=== PATIENT | female | born 1960 | race Caucasian/White ===

== ENCOUNTER 2016-06-16 18:53 | Emergency (ER) | payer OTHER ==
[~2016-06-16] VITALS: Ht 152.4 cm; Wt 99.5 kg
[~2016-06-16 18:53] MED LIST: CIPR500T4 PO; IBUP-1542 PO
[2016-06-16 19:04] VITALS: Ht 152.4 cm; Wt 99.5 kg
[2016-06-16] MEDS ORDERED: SOD CHLORIDE 0.9% 1,000 ML IV STA (20:20)
[2016-06-16] MEDS ORDERED: ONDANSETRON 4 MG INJ IV STA (20:20)
[2016-06-16] MEDS ORDERED: morphine 4 MG/ML VIAL IV STA ×2 (20:20→22:49)
[2016-06-16] MEDS ORDERED: FAMOTIDINE 20 MG INJ IV STA (20:20)
[2016-06-16] MEDS ORDERED: LEVO200T45 PO (20:27)
[2016-06-16] MEDS ORDERED: PANT40TA3 PO (20:28)
[2016-06-16 20:39] LABS: URINE BLOOD (Dip) POC Negative (NEGATIVE)
[2016-06-16 20:44] LABS: ADD SCAN DIFF NO
[2016-06-16 20:47] LABS: BASOPHILS % 0.4 % (0.0-2.0); EOSINOPHILS # 0.1 10^3/ul (0.0-0.5); EOSINOPHILS % 1.1 % (0.0-7.0); HEMATOCRIT 39.3 % (37.0-47.0); LYMPHOCYTES # 2.9 10^3/ul (0.8-2.9); LYMPHOCYTES % 32.3 % (15.0-51.0); MEAN CORPUSCULAR HEMOGLOBIN 32.3 pg (29.0-33.0); MEAN CORPUSCULAR HGB CONC 33.1 g/dl (32.0-37.0); MEAN CORPUSCULAR VOLUME 97.8 fl (82.0-101.0); MEAN PLATELET VOLUME 9.9 fl (7.4-10.4); MONOCYTES % 10.8 % (0.0-11.0); NEUTROPHIL # 4.9 10^3/ul (1.6-7.5); NEUTROPHILS % 55.1 % (39.0-77.0); PLATELET COUNT 233 10^3/UL (140-415); RED BLOOD COUNT 4.02 10^6/ul (4.20-5.40); RED CELL DISTRIBUTION WIDTH 12.3 % (11.5-14.5)
[2016-06-16 20:49] LABS: ADD UMIC YES; URINE BILIRUBIN (Dip) NEGATIVE (NEGATIVE); URINE BLOOD (Dip) TRACE (NEGATIVE); URINE COLOR LT. YELLOW (YELLOW); URINE GLUCOSE (Dip) NEGATIVE (NEGATIVE); URINE KETONES (Dip) NEGATIVE (NEGATIVE); URINE LEUKOCYTE ESTERASE (Dip) TRACE (NEGATIVE); URINE NITRITE (Dip) NEGATIVE (NEGATIVE); URINE TOTAL PROTEIN (Dip) NEGATIVE (NEGATIVE); URINE UROBILINOGEN (Dip) 0.2 E.U./dL (0.1-1.0)
[2016-06-16 20:56] LABS: BACTERIA,URINE FEW; URINE RBCS 0-2 /HPF (0)
[2016-06-16 21:16] LABS: ALBUMIN 4.5 g/dl (3.3-4.9)
[2016-06-16 21:19] LABS: ALBUMIN/GLOBULIN RATIO 1.09; BILIRUBIN,INDIRECT 0.3 mg/dl (0-1.1); BILIRUBIN,TOTAL 0.3 mg/dl (0.2-1.3); CREATININE 0.61 mg/dl (0.44-1.00); TOTAL PROTEIN 8.6 g/dl (6.1-8.1)
[2016-06-16 21:20] LABS: CALCIUM 9.3 mg/dl (8.4-10.2)
--- NOTE | 2016-06-16 22:04 | RADRPT ---
PROCEDURE: CT Abdomen and Pelvis without contrast. CLINICAL INDICATION: Abdominal and pelvic pain. TECHNIQUE: CT scan of the abdomen and pelvis without contrast was performed. Coronal and sagittal reformatted images were obtained from the axial source images. Images were reviewed on a high-resolu [employer] PACS workstation. Total exam DLP is 1239.46 mGy-cm. CTDIvol is 23.14 mGy. One or more of the following dose reduction techniques were used: Automated exposure control, adjustment of the mA and/ or kV according to patient size, use of iterative reconstruction technique. COMPARISON: CT scan of the abdomen and pelvis dated 01/29/2016. FINDINGS: The lung bases are normal. There is no pleural effusion. The liver is enlarged and diffusely decreased attenuation consistent with fatty metamorphosis. There is no focal hepatic lesion. There is mild focal fatty sparing adjacent to the gallbladder. The gallbladder and bile ducts are normal. The spleen is normal in size. There is no focal splenic lesion. Both adrenals are normal with no enlargement or mass. The pancreas is unremarkable with no mass or evidence of pancreatitis. There is no renal mass or hydronephrosis. There is no renal calculus or ureteral calculus. The abdominal aorta is not dilated. There is no retroperitoneal lymphadenopathy or mass. There is no pelvic lymphadenopathy or mass. The bladder and distal ureters are normal. The appendix is well seen and appears normal. There is diverticulosis of the descending colon and sigmoid colon. There is a small region of thick ening of the wall of the lower descending colon with adjacent mesenteric edema consistent with proba ble diverticulitis. The bowel and mesentery are otherwise normal. There is no evidence of abscess. There is no free fluid or free gas. There are degenerative changes of the spine. There is no fracture or lytic lesion. IMPRESSION: 1. Hepatomegaly. 2. Fatty metamorphosis of the liver. 3. Small region of focal fatty sparing of the liver adjacent to the gallbladder. 4. Normal appendix. 5. Diverticulosis of the descending colon and sigmoid colon. 6. Small region of thickening of the wall of the lower descending colon with adjacent mesenteric ed iban consistent with probable diverticulitis. Follow-up advised. 7. Degenerative changes of the spine. RPTAT: QQ .Phil Slaughter MD, MD Date Time Electronically viewed and signed by .Phil Slaughter MD, on 06/16/2016 22:04 .R/
[2016-06-16] MEDS ORDERED: metroNIDAZOLE 500 MG TAB PO ONE (22:30)
[2016-06-16] MEDS ORDERED: CIPROFLOXACIN 500 MG TAB PO ONE (22:30)
--- NOTE | 2016-06-16 22:52 | ERD ---
ER Documentation Chief Complaint Date/Time DATE: 06/16/16 TIME: 22:49 Chief Complaint Left side AP x2 days. worst today. HPI This is a 55-year-old female presents to the emergency room for evaluation of abdominal pain. The patient states that she has had abdominal pain for 2 days duration and localizes to the left portion of abdomen. She describes as a sharp pain with no radiation. She states that she is mildly nauseous, but has not vomited. She denies any diarrhea associated with this and does state that she is passing gas normally. The patient is denying any chest pain or palpitations or shortness of breath associated with this. She denies any relieving factors for her pain and aggravating factors or palpation of the area. ROS All systems reviewed and are negative except as per history of present illness. Medications Home Meds Reported Medications Pantoprazole* (Protonix*) 40 Mg Tablet.dr, 40 MG PO DAILY, TAB 06/16/16 Levothyroxine Sodium* (Levoxyl*) 200 Mcg Tablet, 200 MCG PO BEFORE BREAKFAST, # 30 TAB 06/16/16 Discontinued Scripts Ibuprofen* (Motrin*) 600 Mg Tab, 600 MG PO Q6, #15 TAB Prov:PÉREZ MCKAY NP 01/29/16 Ciprofloxacin Hcl* (Ciprofloxacin Hcl*) 500 Mg Tablet, 500 MG PO BID for 7 Days , TAB Prov:PÉREZ MCKAY NP 01/29/16 Allergies Allergies: Coded Allergies: No Known Allergy (Unverified , 06/16/16) PMhx/Soc History of Surgery: Yes (CS, ovary surgury not specified) Hx Miscellaneous Medical Probl: Yes (thyroiditis) Hx Alcohol Use: No Hx Substance Use: No Hx Tobacco Use: No (quit 6 wks ago) Smoking Status: Former smoker Physical Exam Vitals Vital Signs Date Time Temp Pulse Resp B/P Pulse Ox O2 Delivery O2 Flow Rate FiO2 06/16/16 20:41 86 17 119/70 96 Room Air 06/16/16 19:04 99.0 96 20 132/73 95 Physical Exam INITIAL VITAL SIGNS: Reviewed by me GENERAL: The patient is well developed and appropriate for usual state of health in no apparent distress HEENT: Pupils equal, round, and reactive to light. EOMI. There is no scleral icterus. NECK: C-spine is soft and supple, there is no meningismus. There is no cervical lymphadenopathy. LUNGS: Clear to auscultation bilaterally. There are no rales, wheezes or rhonchi. HEART: Regular rate and rhythm, no murmurs, clicks, rubs or gallops. ABDOMEN: Left lower quadrant tenderness to palpation, otherwise soft, non-tender , non-distended. There are bowel sounds in all four quadrants. No rebound or guarding. EXTREMITIES: There is no peripheral cyanosis or edema. No focal swelling or erythema. NEUROLOGICAL: The patient moves all four extremities with 5/5 strength. Cranial nerves II - XII are intact. Normal gait. Alert and oriented SKIN: There is no apparent rash or petechiae. HEME/LYMPHATIC: There is no evidence of excessive bruising or lymphedema. PSYCHIATRIC: The patient does not appear anxious or depressed. Result Diagram: 06/16/16202906/16/162029 Results 24 hrs Laboratory Tests Test 06/16/16 20:30 06/16/16 20:39 White Blood Count 9.010^3/ul Red Blood Count 4.0210^6/ul Hemoglobin 13.0g/dl Hematocrit 39.3% Mean Corpuscular Volume 97.8fl Mean Corpuscular Hemoglobin 32.3pg Mean Corpuscular Hemoglobin Concent 33.1g/dl Red Cell Distribution Width 12.3% Platelet Count 96253^3/UL Mean Platelet Volume 9.9fl Neutrophils % 55.1% Lymphocytes % 32.3% Monocytes % 10.8% Eosinophils % 1.1% Basophils % 0.4% Nucleated Red Blood Cells % 0.0/100WBC Neutrophils # 4.910^3/ul Lymphocytes # 2.910^3/ul Monocytes # 1.010^3/ul Eosinophils # 0.110^3/ul Basophils # 0.010^3/ul Nucleated Red Blood Cells # 0.010^3/ul Urine Color LT. YELLOW Urine Clarity CLEAR Urine pH 6.5 Urine Specific [place] 1.010 Urine Ketones NEGATIVE Urine Nitrite NEGATIVE Urine Bilirubin NEGATIVE Urine Urobilinogen 0.2 E.U./dL Urine Leukocyte Esterase TRACE Urine Microscopic RBC 0-2/HPF Urine Microscopic WBC 5-10/HPF Urine Epithelial Cells MODERATE Urine Bacteria FEW Urine Hemoglobin TRACE Urine Glucose NEGATIVE% Urine Total Protein NEGATIVE Sodium Level 141mmol/L Potassium Level 4.0mmol/L Chloride Level 100mmol/L Carbon Dioxide Level 28mmol/L Anion Gap 17 Blood Urea Nitrogen 18mg/dl Creatinine 0.61mg/dl Glucose Level 107mg/dl Calcium Level 9.3mg/dl Total Bilirubin 0.3mg/dl Direct Bilirubin 0.00mg/dl Indirect Bilirubin 0.3mg/dl Aspartate Amino Transf (AST/SGOT) 99IU/L Alanine Aminotransferase (ALT/SGPT) 106IU/L Alkaline Phosphatase 121IU/L Total Protein 8.6g/dl Albumin 4.5g/dl Globulin 4.10g/dl Albumin/Globulin Ratio 1.09 Lipase 62U/L Bedside Urine pH (LAB) 6.5 Bedside Urine Protein (LAB) Negative Bedside Urine Glucose (UA) Negative Bedside Urine Ketones (LAB) Negative Bedside Urine Blood Negative Bedside Urine Nitrite (LAB) Negative Bedside Urine Leukocyte Esterase (L Trace Current Medications Medications (Trade) Dose Ordered Sig/Wallace Route PRN Reason Start Time Stop Time Status Last Admin Dose Admin Sodium Chloride (NS) 1,000 ml @ 1,000 mls/hr Q1H STAT IV 06/16/16 20:20 06/16/16 21:19 DC 06/16/16 20:31 Morphine Sulfate (morphine) 4 mg ONCE STAT IV 06/16/16 20:20 06/16/16 20:21 DC 06/16/16 20:31 Ondansetron HCl (Zofran Inj) 4 mg ONCE STAT IV 06/16/16 20:20 06/16/16 20:21 DC 06/16/16 20:30 Famotidine (Pepcid Iv) 20 mg ONCE STAT IV 06/16/16 20:20 06/16/16 20:21 DC 06/16/16 20:31 Ciprofloxacin (Cipro) 500 mg ONCE ONCE PO 06/16/16 22:30 06/16/16 22:31 DC 06/16/16 22:32 Metronidazole (Flagyl) 500 mg ONCE ONCE PO 06/16/16 22:30 06/16/16 22:31 DC 06/16/16 22:32 Procedures/MDM CT abdomen pelvis without: 1. Hepatomegaly. 2. Fatty metamorphosis of the liver. 3. Small region of focal fatty sparing of the liver adjacent to the gallbladder. 4. Normal appendix. 5. Diverticulosis of the descending colon and sigmoid colon. 6. Small region of thickening of the wall of the lower descending colon with adjacent mesenteric edema consistent with probable diverticulitis. Follow-up advised. 7. Degenerative changes of the spine. This 35-year-old female presents to the emergency room for evaluation of abdominal pain. When I evaluated her this patient did have tenderness to palpation in the left lower quadrant. The patient does not have any history of diverticulosis, and that she appeared to be in mild distress. I did obtain lab work on this patient and did give this patient morphine for pain control. CT of the abdomen and pelvis was obtained which shows probable diverticulitis. Given this patient's clinical findings the patient was treated with oral ciprofloxacin and Flagyl. Her pain is controlled with morphine at this time. She is afebrile, no leukocytosis and will be discharged home with a prescription for ciprofloxacin, Flagyl, [place], and Zofran. Departure Diagnosis: Primary Impression: Acute diverticulitis Additional Impression: Abdominal pain Condition: Stable SIRISHA RIVERO DO Jun 16, 2016 22:51
[2016-06-16] MEDS ORDERED: METR500T14 PO (22:53)
[2016-06-16] MEDS ORDERED: CIPR500T4 PO (22:53)
[2016-06-16] MEDS ORDERED: HYDR-906 PO (22:53)
[2016-06-16] MEDS ORDERED: ONDA4TAB8 PO (22:54)
[2016-06-16] MEDS ORDERED: HYDROCODONE/APAP (5/325) TAB PO ONE (23:00)
[2016-06-16 23:09] VITALS: BP 111/68; PULSE 84; RESP 18
== END 2016-06-16 23:09 | disposition home or self-care (01) ==
LOC: E/R 18:53
DX: K57.92 Diverticulitis of intestine, part unspecified, without perforation or abscess without bleeding (principal); R10.32 Left lower quadrant pain; R11.0 Nausea; Z87.891 Personal history of nicotine dependence
CPT/HCPCS: 36415; 74176; 80053; 81001; 81003; 83690; 85025; 96374; 96375; 96376; J2270; J2405; J7030; Z7502; Z7610

== ENCOUNTER 2016-10-14 15:14 | Emergency (ER) | payer SELFPAY ==
[~2016-10-14] VITALS: Ht 157.5 cm; Wt 96.5 kg
[~2016-10-14 15:14] MED LIST changes: +HYDR-906 PO; -IBUP-1542 PO; +LEVO200T45 PO; +METR500T14 PO; +ONDA4TAB8 PO; +PANT40TA3 PO
[2016-10-14 15:17] VITALS: Ht 157.5 cm; Wt 96.5 kg
== END 2016-10-14 19:30 | disposition left against medical advice (07) ==
LOC: E/R 15:14
DX: Z53.21 Procedure and treatment not carried out due to patient leaving prior to being seen by health care provider (principal)

== ENCOUNTER 2016-11-16 07:52 | Day surgery (SDC) | payer OTHER ==
[~2016-11-16] VITALS: Ht 157.5 cm; Wt 94.8 kg
[2016-11-16 08:53] VITALS: Ht 157.5 cm; Wt 94.8 kg
[2016-11-16 09:23] VITALS: BP 122/63; PULSE 64; RESP 18
[2016-11-16] MEDS ORDERED: FENTAnyl 50 MCG/ML VIAL ONE (09:34)
[2016-11-16] MEDS ORDERED: PROPOFOL 20 ML ONE (09:34)
[2016-11-16] MEDS ORDERED: MIDAZOLAM 1 MG/ML 2 ML INJ ONE (09:34)
--- NOTE | 2016-11-16 09:57 | OPPN ---
Date/Time of Note Date/Time of Note DATE: 11/16/16 TIME: 09:56 Operative Report Preoperative Diagnosis Screening: Colonoscopy Postoperative Diagnosis Same Operation/Procedure Performed 1. Diverticulosis 2. Negative all the way into cecum Provider: RAFAELA PADILLA MD Anesthesia Type: MAC Estimated blood loss: none Transfusion Required: no Specimen: none Grafts/Implants: none Complications: no RAFAELA PADILLA MD Nov 16, 2016 09:57
[2016-11-16 10:21] VITALS: BP 126/74; PULSE 60; RESP 21
--- NOTE | 2016-11-16 12:39 | GILP ---
DATE OF PROCEDURE: 11/16/2016 INDICATIONS FOR PROCEDURE: A 56-year-old female undergoing the procedure for colon cancer screening. The risks of the procedure, related complications, anesthetic risk, alternatives discussed and informed consent was obtained. DESCRIPTION OF PROCEDURE: Patient was brought to the GI lab, sedated by the anesthesiologist. After optimal sedation, the digital examination done which was grossly normal. Scope was passed with much ease into the rectum. Advanced through sigmoid, descending, transverse colon all the way into the cecum. Cecum was filled with stool and there was solid stool at different angulation but grossly it was normal. A few diverticula seen in the left side of the colon. The scope was then gradually withdrawn. Patient tolerated the procedure well. IMPRESSION: 1. Normal digital exam. 2. Normal all the way into the cecum. 3. Prep suboptimal in the cecum and also at different angulation because of solid stool precluding the visibility by 5 percent. 4. Diverticulosis. PLAN: Stay on high-fiber diet. Addendum: We asked for an EGD also but the insurance company declined it. Dictated By: Shar Wallace MD /althea/masoud /Document#: [id number] ; Romeo Dowd MD
== END 2016-11-16 12:44 | disposition home or self-care (01) ==
LOC: GIL 07:52
PROVIDERS: ATTEND Internal Medicine Gastroenterology
DX: Z12.11 Encounter for screening for malignant neoplasm of colon (principal); K57.30 Diverticulosis of large intestine without perforation or abscess without bleeding; Z88.0 Allergy status to penicillin
CPT/HCPCS: 45378; J2250; J3010; Z7610

== ENCOUNTER 2017-03-11 15:35 | Inpatient (IN) | END 2017-03-21 13:39 | disposition home or self-care (01) | DRG 301 ==

== ENCOUNTER 2017-04-04 13:41 | Emergency (ER) | END 2017-04-04 21:44 | disposition home or self-care (01) ==

== ENCOUNTER 2017-05-07 09:27 | Emergency (ER) | END 2017-05-07 11:53 | disposition home or self-care (01) ==

== ENCOUNTER 2017-10-12 19:39 | Emergency (ER) | END 2017-10-12 21:36 | disposition home or self-care (01) ==

== ENCOUNTER 2017-11-12 05:08 | Emergency (ER) | END 2017-11-12 08:20 | disposition home or self-care (01) ==

== ENCOUNTER 2017-12-26 09:28 | Emergency (ER) | END 2017-12-26 14:12 | disposition home or self-care (01) ==

== ENCOUNTER 2018-03-23 12:05 | Emergency (ER) | payer OTHER ==
[~2018-03-23] VITALS: Ht 160 cm; Wt 90.4 kg
[~2018-03-23 12:05] MED LIST changes: +CEPH500C PO; -CIPR500T4 PO; -HYDR-906 PO; +LEVO175T6 PO; -LEVO200T45 PO; -METR500T14 PO; -ONDA4TAB8 PO; -PANT40TA3 PO
[2018-03-23 12:08] VITALS: BP 127/72; PULSE 85; RESP 20; Ht 160 cm; Wt 90.4 kg
[2018-03-23] MEDS ORDERED: PROMETHAZINE/CODEINE 5ML CUP PO ONE (13:00)
[2018-03-23] MEDS ORDERED: KETOROLAC 30 MG INJ IM STA (13:00)
[2018-03-23] MEDS ORDERED: IBUP-1542 PO (13:52)
[2018-03-23] MEDS ORDERED: PROM5SYR2 PO (13:52)
--- NOTE | 2018-03-23 13:54 | ERD ---
ER Documentation Chief Complaint Chief Complaint pt is bib family with c/o sore throat x 3 days and fever HPI 57-year-old female presents with sore throat and fever, cough and body aches for the last 3 days. She has vomiting, chest pain, abdominal pain, urinary complaints. ROS All systems reviewed and are negative except as per history of present illness. Medications Home Meds Active Scripts Promethazine HCl/Codeine (Prometh-Codein 6.25-10 mg/5 ml) 5 Ml Syrup, 5 ML PO BID for 4 Days Prov:GIOVANA RASCON MD 03/23/18 Ibuprofen* (Motrin*) 600 Mg Tab, 600 MG PO Q6, #20 TAB Prov:GIOVANA RASCON MD 03/23/18 Cephalexin* (Cephalexin*) 500 Mg Capsule, 500 MG PO Q8, #21 CAP Prov:NEELA DUNN MD 12/26/17 Reported Medications Levothyroxine Sodium* (Levothyroxine Sodium*) 175 Mcg Tablet, 175 MCG PO BEFORE BREAKFAST, #30 TAB 12/26/17 Allergies Allergies: Coded Allergies: acetaminophen (Verified Allergy, Intermediate, itching all over , 03/12/17) hydrocodone (Verified Allergy, Intermediate, itching all over , 03/12/17) PMhx/Soc History of Surgery: No Anesthesia Reaction: No Hx Neurological Disorder: No Hx Respiratory Disorders: No Hx Cardiac Disorders: No Hx Psychiatric Problems: No Hx Miscellaneous Medical Probl: Yes (hyperthyroidism, PE, multiple blood clots) Hx Alcohol Use: No Hx Substance Use: No Hx Tobacco Use: No Smoking Status: Never smoker FmHx Family History: No diabetes, No coronary disease, No other Physical Exam Vitals Vital Signs Date Temp Pulse Resp B/P (MAP) Pulse Ox O2 O2 Flow FiO2 Time Delivery Rate 03/23/18 99.5 85 20 127/72 98 12:08 (90) Physical Exam Const: No acute distress Head: Atraumatic Eyes: Normal Conjunctiva ENT: Normal External Ears, Nose and Mouth. Slight redness in the throat. TMs normal. Neck: Full range of motion. No meningismus. Resp: Clear to auscultation bilaterally. Dry cough without rales, wheezing or retractions. Cardio: Regular rate and rhythm, no murmurs Abd: Soft, non tender, non distended. Normal bowel sounds Skin: No petechiae or rashes Back: No midline or flank tenderness Ext: No cyanosis, or edema Neur: Awake and alert Psych: Normal Mood and Affect Results 24 hrs Current Medications Medications Dose Sig/Wallace Start Time Status Last (Trade) Ordered Route PRN Stop Time Admin Dose Reason Admin Ketorolac 30 mg ONCE STAT 03/23/18 DC 03/23/18 Tromethamine IM 13:00 13:07 (Toradol) 03/23/18 13:02 Promethazine 10 ml ONCE ONCE 03/23/18 DC 03/23/18 HCl/ PO 13:00 13:08 Codeine 03/23/18 13:02 (Phenergan/ Codeine) Procedures/MDM Patient presents with URI symptoms for last 3 days, mostly of which is a sore throat. Rapid strep is negative. Patient was given Toradol 30 mg IM. Patient likely has acute viral syndrome and pharyngitis. She will treated with cough syrup, ibuprofen, primary care follow-up and return precautions. Signs do not suggest hypoxemia or respiratory distress. The patient was stable with no new complaints during the ER course. Clinically, there is no current evidence to suggest meningitis, sepsis, acute abdomen, pneumonia, stroke, acute coronary syndrome, pulmonary embolism, aortic dissection or any other emergent condition appearing to require further evaluation or hospitalization. Patient counseled regarding my diagnostic impression and care plan. Prior to discharge all questions answered. Pt agrees with treatment plan and understands strict return precautions. Pt is instructed to follow up with primary care provider within 24- 48 hours. Precautionary instructions provided including instructions to return to the ER if not improving or for any worsening or changing symptoms or concerns. Departure Diagnosis: Primary Impression: URI, acute Additional Impression: Sore throat Patient Instructions: Uri, Viral, No Abx (Adult) Additional Instructions: Probablamente un virus que dura 2-4 murphy. cheque otro vez en el proximo lizette para mas simptomas- vomito, dolor, isabel, problemas con respirando, o con bunn doctor primario. GIOVANA RASCON MD Mar 23, 2018 13:53
== END 2018-03-23 14:06 | disposition home or self-care (01) ==
LOC: FTE 12:05
DX: J06.9 Acute upper respiratory infection, unspecified (principal)
CPT/HCPCS: 87880; 96372; J1885; Z7502; Z7610

== ENCOUNTER 2018-08-18 12:08 | Emergency (ER) | payer OTHER ==
[~2018-08-18] VITALS: Ht 160 cm; Wt 93.0 kg
[~2018-08-18 12:08] MED LIST changes: +IBUP-1542 PO; +PROM5SYR2 PO
[2018-08-18 12:15] VITALS: BP 159/66; PULSE 99; RESP 20; Ht 160 cm; Wt 93.0 kg
[2018-08-18] MEDS ORDERED: IBUP-1542 PO (12:43)
--- NOTE | 2018-08-18 12:54 | ERD ---
ER Documentation Chief Complaint Chief Complaint LEFT WRIST PAIN, DENIES FALLS, MILD SWELLING, 10/10 PAIN HPI 57-year-old female presents to the ED complaining of a mass on her palmar left wrist for about a week. She states that the mass is very painful to touch and causes pain when moving her wrist around. She has tried rubbing CBD cream on the mass and tried taking tramadol with minor relief of her pain symptoms. Denies a previous history of similar incidents. She denies any injury or trauma to her wrist. She reports her pain is 10 out of 10 at worst and nothing makes it better and worsens with movement. ROS All systems reviewed and are negative except as per history of present illness. Medications Home Meds Active Scripts Ibuprofen* (Motrin*) 600 Mg Tab, 600 MG PO Q6, #30 TAB Prov:LINDA JAIN PA-C 08/18/18 Promethazine HCl/Codeine (Prometh-Codein 6.25-10 mg/5 ml) 5 Ml Syrup, 5 ML PO BID for 4 Days Prov:GIOVANA RASCON MD 03/23/18 Ibuprofen* (Motrin*) 600 Mg Tab, 600 MG PO Q6, #20 TAB Prov:GIOVANA RASCON MD 03/23/18 Cephalexin* (Cephalexin*) 500 Mg Capsule, 500 MG PO Q8, #21 CAP Prov:NEELA DUNN MD 12/26/17 Reported Medications Levothyroxine Sodium* (Levothyroxine Sodium*) 175 Mcg Tablet, 175 MCG PO BEFORE BREAKFAST, #30 TAB 12/26/17 Allergies Allergies: Coded Allergies: acetaminophen (Verified Allergy, Intermediate, itching all over , 03/12/17) hydrocodone (Verified Allergy, Intermediate, itching all over , 03/12/17) PMhx/Soc Medical and Surgical Hx: pt denies Medical Hx History of Surgery: No Anesthesia Reaction: No Hx Neurological Disorder: No Hx Respiratory Disorders: No Hx Cardiac Disorders: No Hx Psychiatric Problems: No Hx Miscellaneous Medical Probl: Yes (hyperthyroidism, PE, multiple blood clots) Hx Alcohol Use: No Hx Substance Use: No Hx Tobacco Use: No FmHx Family History: No diabetes Physical Exam Vitals Vital Signs Date Temp Pulse Resp B/P (MAP) Pulse Ox O2 O2 Flow FiO2 Time Delivery Rate 08/18/18 99.0 99 20 159/66 98 12:15 (97) Physical Exam Const: No acute distress Head: Atraumatic Eyes: Normal Conjunctiva ENT: Normal External Ears, Nose and Mouth. Neck: Full range of motion Resp: Clear to auscultation bilaterally Cardio: Regular rate and rhythm, no murmurs Abd: Soft, non tender, non distended. Normal bowel sounds Skin: No petechiae or rashes Back: No midline or flank tenderness Ext: Left wrist: Half centimeter bump located on palmar wrist above the carpal tunnel. Pain with range of motion of the wrist. Good 2+ pulses, motor and sensation intact. Neur: Awake and alert Psych: Normal Mood and Affect Procedures/MDM ED COURSE: The patient was stable throughout ED course. I kept the patient informed of laboratory and diagnostic imaging results throughout the ED course. MEDICATIONS GIVEN: [None.] MEDICAL DECISION MAKING: Patient is a 57-year-old female presenting with a mass on her palmar left wrist x1 week. she denies any injury or trauma to her wrist. With history and physical this appears to be a ganglion cyst that is pressing upon the carpal tunnel which is the source of her pain. Patient did not want a splint at this time. Patient was instructed to follow-up with primary care in order to get Ortho referral for further management of her cyst. H&P with other data not c/w emergent process (eg. DVT, AAO, compartment syndrome, nec fasc). No signs of ischemia, neurovascular compromise, compartment syndrome, or septic joint, avascular necrosis, or osteomyelitis. Her vital signs were reviewed. Patient is afebrile. Patient was not hypoxic. Patient was hemodynamically stable. PRESCRIPTION: MOTRIN DISCHARGE: At this time, patient is stable for discharge and outpatient management. I have instructed the patient to follow-up with his/her primary care physician in 1-2 days. I have discussed with the patient the possibility of needing to see a specialist for further workup and imaging studies if symptoms persist. I have instructed the patient to promptly return to the ER for any new or worsening symptoms including increased pain, fever, nausea, vomiting, weakness or LOC. The patient and/or family expressed understanding of and agreement with this plan. All questions were answered. Home care instructions were provided. Disclaimer: Inadvertent spelling and grammatical errors are likely due to EHR/dictation software use and do not reflect on the overall quality of patient care. Also, please note that the electronic time recorded on this note does not necessarily reflect the actual time of the patient encounter. Departure Diagnosis: Primary Impression: Ganglion cyst Condition: Fair Patient Instructions: Ganglion Cyst: Hand Referrals: [facility] YOU HAVE RECEIVED A MEDICAL SCREENING EXAM AND THE RESULTS INDICATE THAT YOU DO NOT HAVE A CONDITION THAT REQUIRES URGENT TREATMENT IN THE EMERGENCY DEPARTMENT. FURTHER EVALUATION AND TREATMENT OF YOUR CONDITION CAN WAIT UNTIL YOU ARE SEEN IN YOUR DOCTORS OFFICE WITHIN THE NEXT 1-2 DAYS. IT IS YOUR RESPONSIBILITY TO MAKE AN APPOINTMENT FOR FOLOW-UP CARE. IF YOU HAVE A PRIMARY DOCTOR --you should call your primary doctor and schedule an appointment IF YOU DO NOT HAVE A PRIMARY DOCTOR YOU CAN CALL OUR PHYSICIAN REFERRAL HOTLINE AT IF YOU CAN NOT AFFORD TO SEE A PHYSICIAN YOU CAN CHOSE FROM THE FOLLOWING [facility] [address] [facility]. [facility] [address] [facility]. [facility] [address] [facility] [facility] [address] [facility] [address] [facility]. [facility] [address] [facility]. [facility] YOU HAVE RECEIVED A MEDICAL SCREENING EXAM AND THE RESULTS INDICATE THAT YOU DO NOT HAVE A CONDITION THAT REQUIRES URGENT TREATMENT IN THE EMERGENCY DEPARTMENT. FURTHER EVALUATION AND TREATMENT OF YOUR CONDITION CAN WAIT UNTIL YOU ARE SEEN IN YOUR DOCTORS OFFICE WITHIN THE NEXT 1-2 DAYS. IT IS YOUR RESPONSIBILITY TO MA KE AN APPOINTMENT FOR FOLOW-UP CARE. IF YOU HAVE A PRIMARY DOCTOR --you should call your primary doctor and schedule and appointment IF YOU DO NOT HAVE A PRIMARY DOCTOR YOU CAN CALL OUR PHYSICIAN REFERRAL HOTLINE AT . IF YOU CAN NOT AFFORD TO SEE A PHYSICIAN YOU CAN CHOSE FROM THE FOLLOWING [facility] INSTITUTIONS: [facility] [address] [place] [address] [facility] [address] [place] [address] [address] [facility] Care 7 a.m.- 11 p.m. Every Day of the Week NO APPOINTMENT OR AUTHORIZATION NEEDED Additional Instructions: follow up with primary to get ortho referal in next 1-2 days Call your primary care doctor TOMORROW for an appointment during the next 1-2 days.See the doctor sooner or return here if your condition worsens before your appointment time. LINDA JAIN PA-C Aug 18, 2018 12:54
== END 2018-08-18 12:53 | disposition home or self-care (01) ==
LOC: FTE 12:08
DX: M67.432 Ganglion, left wrist (principal)
CPT/HCPCS: 99282

== ENCOUNTER 2018-09-20 10:38 | Emergency (ER) | payer OTHER ==
[~2018-09-20] VITALS: Wt 95.0 kg
[2018-09-20 10:52] VITALS: BP 143/82; PULSE 66; RESP 18
[2018-09-20] MEDS ORDERED: IBUP-1542 PO (13:02)
--- NOTE | 2018-09-20 13:08 | ERD ---
ER Documentation Chief Complaint Chief Complaint R CALF PAIN X 2 DAYS HX OF DVT HPI Patient is a 57-year-old female, past medical history of hyperthyroidism, right subclavian DVT, completed course of anticoagulation medications, currently not on any anticoagulation, who presents to the ER for concerns of right calf pain x2 days. Given patient's previous history of DVT, patient is concerned she may have a blood clot. Patient denies any falls or trauma. Patient denies any recent travel, recent surgeries, hormonal use. Patient denies any fevers or chills. Patient denies any chest pain, shortness of breath or LOC. ROS All systems reviewed and are negative except as per history of present illness. Medications Home Meds Active Scripts Ibuprofen* (Motrin*) 600 Mg Tab, 600 MG PO Q6, #30 TAB Prov:PADDY BETTS PA-C 09/20/18 Ibuprofen* (Motrin*) 600 Mg Tab, 600 MG PO Q6, #30 TAB Prov:LINDA JAIN PA-C 08/18/18 Promethazine HCl/Codeine (Prometh-Codein 6.25-10 mg/5 ml) 5 Ml Syrup, 5 ML PO BID for 4 Days Prov:GIOVANA RASCON MD 03/23/18 Ibuprofen* (Motrin*) 600 Mg Tab, 600 MG PO Q6, #20 TAB Prov:GIOVANA RASCON MD 03/23/18 Cephalexin* (Cephalexin*) 500 Mg Capsule, 500 MG PO Q8, #21 CAP Prov:NEELA DUNN MD 12/26/17 Reported Medications Levothyroxine Sodium* (Levothyroxine Sodium*) 175 Mcg Tablet, 175 MCG PO BEFORE BREAKFAST, #30 TAB 12/26/17 Allergies Allergies: Coded Allergies: acetaminophen (Verified Allergy, Intermediate, itching all over , 03/12/17) hydrocodone (Verified Allergy, Intermediate, itching all over , 03/12/17) PMhx/Soc History of Surgery: No Anesthesia Reaction: No Hx Neurological Disorder: No Hx Respiratory Disorders: No Hx Cardiac Disorders: No Hx Psychiatric Problems: No Hx Miscellaneous Medical Probl: Yes (hyperthyroidism, PE, multiple blood clots) Hx Alcohol Use: No Hx Substance Use: No Hx Tobacco Use: No FmHx Family History: No diabetes Physical Exam Vitals Vital Signs Date Temp Pulse Resp B/P (MAP) Pulse Ox O2 O2 Flow FiO2 Time Delivery Rate 09/20/18 97.9 66 18 143/82 99 10:52 (102) Physical Exam GENERAL: Well-developed, well-nourished female. Appears in no acute distress. HEAD: Normocephalic, atraumatic. EYES: Pupils are equally reactive bilaterally. EOMs grossly intact. No conjunctival erythema. ENT: Moist mucous membranes. No uvula deviation. No kissing tonsils. NECK: Supple. No meningismus. Normal range of motion of the neck. LUNG: Clear to auscultation bilaterally. No rhonchi, wheezing, rales or coarse breath sounds. HEART: Regular rate and rhythm. No murmurs, rubs or gallops. Pulses in bilateral upper extremities. EXTREMITIES: Equal pulses bilaterally. No peripheral clubbing, cyanosis or edema. Right calf is tender to palpation. Pain is reproducible. Patient reports pain with dorsiflexion. NEUROLOGIC: Alert and oriented. Moving all four extremities without any difficulty. Normal speech. Steady gait. SKIN: Normal color. Warm and dry. No rashes or lesions. Procedures/MDM ED COURSE: The patient was stable throughout ED course. I kept the patient and/or family informed of laboratory and diagnostic imaging results throughout the ED course. DIAGNOSTIC IMAGING: Read by radiologist. Patient: LAURA PHILLIPS : 1960 Age: 57 Sex: F MR #: [id number] DOS: 09/20/18 1145 Ordering MD: PADDY BETTS PA-C Location: [facility] Room/Bed: PROCEDURE: US Lower extremity Venous. CLINICAL INDICATION: Right leg edema, pain TECHNIQUE: Multiple sonographic images of the right lower extremity deep venous system was obtained utilizing grayscale, color-flow, compressive sonography and doppler imaging with augmentation. The images were reviewed on a PACS workstation. COMPARISON: None. FINDINGS: There is normal compressibility and flow within the right common femoral, femoral, posterior tibial, peroneal and popliteal veins. RPTAT: AA IMPRESSION: No sonographic evidence for deep venous thrombosis. .Gamal Keller MD, MD Date Time Electronically viewed and signed by .Gamal Keller MD, MD on 09/20/2018 12:30 .S/ CC: PADDY BETTS PA-C [id number] PROCEDURES: None. MEDICAL DECISION MAKING: This is a 57-year-old female with past medical history of right subclavian DVT, presents to the ER for concerns of right calf pain x2 days. Of note, per DIANELYS report, patient has been in the emergency department 7 times in the last 12 months.. Patient is concerned she may have a DVT given her previous history. Patient denies any fevers or chills. vital signs were reviewed. Patient was afebrile. Patient was not hypoxic. Doppler ultrasound was negative for DVT in the right lower extremity. Patient denied any chest pain, shortness of breath or LOC. Patient's vital signs were within normal limits. Low suspicion for PE. Patient denied any falls or trauma. Low suspicion for fracture or dislocation. Patient was advised to follow-up with an piercing specialist for MRI and outpatient basis. Unable to rule out any ligament or tendon injuries at this time. Low suspicion for septic joint, cellulitis or deep space infection. Patient was nontoxic, [id number] prior to discharge. PRESCRIPTIONS: Ibuprofen DISCHARGE: At this time, patient is stable for discharge and outpatient management. RICE therapy and ROM exercises were advised to avoid stiffness. I have instructed the patient to follow-up with his/her primary care physician in 1-2 days. I have discussed with the patient the possibility of needing to see an piercing specialist for further workup and imaging if the pain persists. I have instructed the patient to promptly return to the ER for any new or worsening symptoms including increased pain, swelling, redness, warmth or fever. The patient and/or family expressed understanding of and agreement with this plan. All questions were answered. Home care instructions were provided. Disclaimer: Inadvertent spelling and grammatical errors are likely due to EHR/dictation software use and do not reflect on the overall quality of patient care. Also, please note that the electronic time recorded on this note does not necessarily reflect the actual time of the patient encounter. Departure Diagnosis: Primary Impression: Right calf pain Condition: Fair Patient Instructions: Muscle Strain, Extremity Referrals: [facility] YOU HAVE RECEIVED A MEDICAL SCREENING EXAM AND THE RESULTS INDICATE THAT YOU DO NOT HAVE A CONDITION THAT REQUIRES URGENT TREATMENT IN THE EMERGENCY DEPARTMENT. FURTHER EVALUATION AND TREATMENT OF YOUR CONDITION CAN WAIT UNTIL YOU ARE SEEN IN YOUR DOCTORS OFFICE WITHIN THE NEXT 1-2 DAYS. IT IS YOUR RESPONSIBILITY TO MAKE AN APPOINTMENT FOR FOLOW-UP CARE. IF YOU HAVE A PRIMARY DOCTOR --you should call your primary doctor and schedule an appointment IF YOU DO NOT HAVE A PRIMARY DOCTOR YOU CAN CALL OUR PHYSICIAN REFERRAL HOTLINE AT IF YOU CAN NOT AFFORD TO SEE A PHYSICIAN YOU CAN CHOSE FROM THE FOLLOWING [facility] [address] [facility]. [facility] [address] [facility] [facility] [address] [facility] [address] [facility] [facility] [address] [facility]. [facility] [address] [facility]. [facility] YOU HAVE RECEIVED A MEDICAL SCREENING EXAM AND THE RESULTS INDICATE THAT YOU DO NOT HAVE A CONDITION THAT REQUIRES URGENT TREATMENT IN THE EMERGENCY DEPARTMENT. FURTHER EVALUATION AND TREATMENT OF YOUR CONDITION CAN WAIT UNTIL YOU ARE SEEN IN YOUR DOCTORS OFFICE WITHIN THE NEXT 1-2 DAYS. IT IS YOUR RESPONSIBILITY TO MAKE AN APPOINTMENT FOR FOLOW-UP CARE. IF YOU HAVE A PRIMARY DOCTOR --you should call your primary doctor and schedule and appointment IF YOU DO NOT HAVE A PRIMARY DOCTOR YOU CAN CALL OUR PHYSICIAN REFERRAL HOTLINE AT . IF YOU CAN NOT AFFORD TO SEE A PHYSICIAN YOU CAN CHOSE FROM THE FOLLOWING [facility] INSTITUTIONS: [facility] [address] [place] [address] [facility] [address] [place] [address] [facility] [address] [place] [address] Additional Instructions: Call your primary care doctor TOMORROW for an appointment during the next 1-2 days.See the doctor sooner or return here if your condition worsens before your appointment time. PADDY BETTS PA-C Sep 20, 2018 13:08
== END 2018-09-20 13:06 | disposition home or self-care (01) ==
LOC: FTE 10:38
DX: M79.604 Pain in right leg (principal)
CPT/HCPCS: 93971; Z7502

== ENCOUNTER 2018-10-25 11:12 | Emergency (ER) | payer OTHER ==
[~2018-10-25] VITALS: Ht 162.6 cm; Wt 92.9 kg
[~2018-10-25 11:12] MED LIST changes: +OMEP40CA6 PO; +TRAM50TA PO
[2018-10-25 11:15] VITALS: Ht 162.6 cm; Wt 92.9 kg
[2018-10-25] MEDS ORDERED: IBUPROFEN 600 MG TAB PO STA (13:05)
[2018-10-25 14:00] VITALS: BP 106/70; PULSE 77; RESP 20
== END 2018-10-25 15:01 | disposition home or self-care (01) ==
LOC: E/R 11:12
DX: M79.604 Pain in right leg (principal)
CPT/HCPCS: 36415; 80053; 85025; 85610; 85730; 93971; Z7502; Z7610